=== PATIENT | male | born 1945 | race Caucasian/White ===

== ENCOUNTER 2019-03-20 21:53 | Emergency (ER) | payer MEDICARE, SELFPAY ==
--- NOTE | 2019-03-20 21:54 | ED.GENADUL_ITS ---
Discharge Plan Disposition Patient Disposition: HOME Condition: Good Discharge Details Chief Complaint: Cellulitis Clinical Impression: Localized swelling of right forearm ED Provider: Ata Aguirre [place] Meds and New Rx's Prescriptions: New ibuprofen 600 mg tablet 600 mg PO TID Qty: 15 RF: 0 Continued atorvastatin 40 mg Tablet 40 mg PO QHS RF: 0 lisinopril 10 mg Tablet 10 mg PO DAILY RF: 0 bupropion HCl 75 mg Tablet 75 mg PO DAILY RF: 0 aspirin 81 mg Tablet,Chewable 81 mg PO DAILY RF: 0 loratadine [Claritin] 10 mg Tablet 10 mg PO DAILY RF: 0 Discharge Instructions Additional Instructions: As of tonight this does not appear to be infection or blood clot. The swelling is localized and not overly painful. Will try nonsteroidals and ice over the weekend. Take the ibuprofen with food. Ice on and off 3 or 4 times a day. Follow-up with primary care next week if not better. Return to emergency department if you develop fever, increased pain, redness, worsening swelling, neurologic changes, other concerns or problems. Referrals: Primary Care Provider [Outside] Medical Decision Making At this point there does not appear to be infection or cellulitis. He has no fever or chills. There is no erythema, warmth, tenderness. He does seem to have some fullness in the distal volar forearm. Again is not painful. No evidence of compartment syndrome. He is neurovascularly intact distally. Does not appear to be associated with the wrist. I doubt DVT as this is localized swelling. He does not have swelling of the hand at all. Dorsal forearm is normal. Not completely sure of the etiology. He just describes it as feeling tight to him not painful. I do not think he needs imaging or labs. I would not treat for cellulitis at this point. Will try nonsteroidals for the weekend along with ice and have him follow-up with primary care for reevaluation next week. Return to ED if he develops fever, increasing pain/redness/swelling, neurologic changes, worse swelling especially involving distal right upper extremity. HPI General Mode of arrival: ambulatory . Date/Time Provider Initiated Documentation: 03/20/19 21:53 . Limitations to Documentation: no limitations . Information obtained by: patient . HPI Narrative: Patient presents to ED with complaint of right forearm tightness and swelling. Patient noticed yesterday but it seemed to be worse today. He does not really describe pain. There is no limit to his range of motion. There is no numbness or weakness in the right upper extremity. He was concerned that maybe he had a cellulitis as he has a couple of ulrich on his hand. However, he denies fever, chills, redness, warmth. He denies any chest pain, shortness of breath. He denies swelling or tightness elsewhere. He otherwise currently feels well. Related Data Home Medications Medication Instructions Recorded Confirmed aspirin 81 mg PO DAILY 03/20/19 03/20/19 atorvastatin 40 mg PO QHS 03/20/19 03/20/19 bupropion HCl 75 mg PO DAILY 03/20/19 03/20/19 ibuprofen 600 mg PO TID #15 tab 03/20/19 lisinopril 10 mg PO DAILY 03/20/19 03/20/19 loratadine [Claritin] 10 mg PO DAILY 03/20/19 03/20/19 Previous Rx's Medication Instructions Recorded ibuprofen 600 mg PO TID #15 tab 03/20/19 Allergies Allergy/AdvReac Type Severity Reaction Status Date / Time No Known Allergies Allergy Unverified 03/20/19 21:59 Review of Systems Review of Systems As documented in HPI otherwise negative as below. Const: no fever, chills, weakness Resp: no cough, SOB, pleuritic pain CV: no CP, diaphoresis, edema, syncope GI: no abdominal pain, nausea, vomiting, diarrhea Neuro: no headache, numbness, focal weakness, confusion PFSH Medical History HTN (hypertension) (Chronic) Hyperlipemia (Acute) Surgical History Hx of appendectomy (Chronic) Social History Smoking/Tobacco Use Status: Current every day Tobacco Type: smokeless tobacco Alcohol Intake: current Alcohol Intake frequency: 0-2 drinks per day Alcohol type: beer Drug use: Never Substance use type: does not use Do you feel safe at home: Yes Do you feel safe in your relationship?: Yes Exam Narrative Exam Narrative: Vitals: Afebrile here. BP a little elevated, otherwise normal vitals. Const: WDWN male in NAD. HEENT: NC/AT. Normal facial exam. Eyes: Normal conjunctiva and sclera. Neck: Supple. Trachea midline. Lungs: Normal respiratory effort. Neuro: A+O x 3. CN grossly in tact. Normal strength, sensation, gait and speech. Ext: Upper extremities with normal ROM except right shoulder which is chronically limited due to old fracture. There is no tenderness anywhere in the UE. There is some fullness in the volar aspect of the right forearm between the wrist and mid forearm. It is not red, warm or painful. There is normal ROM of the wrist and hand. Pulses are normal. Strength and sensation are in tact. Cap refill is normal. Skin: Warm and dry without erythema. Old ulrich without signs of infection on right index and middle finger.
[2019-03-20 21:56] VITALS: BP 163/77; PULSE 85; RESP 18; TEMP 37.2; O2SAT 97
[2019-03-20 22:42] VITALS: BP 152/83; PULSE 86; RESP 18; TEMP 37; O2SAT 97
== END 2019-03-20 22:41 | disposition home or self-care (01) ==
LOC: ER 22:59
PROVIDERS: Emergency Provider Emergency Medicine; PCP Internal Medicine
DX: R22.31 Localized swelling, mass and lump, right upper limb (principal); I10 Essential (primary) hypertension
CPT/HCPCS: 99282